=== PATIENT | male | born 1960 | race Caucasian/White ===

== ENCOUNTER 2018-05-07 07:08 | Emergency (ER) | payer MEDICAID ==
[2018-05-07 07:20] VITALS: BP 119/75
[2018-05-07] MEDS ORDERED: PROPARACAINE/FLUORESCEIN SOD 5 ML OPHT.BTL ONE (07:27)
[2018-05-07] MEDS ORDERED: PROPARACAINE 0.5% 15 ML OPHT DROP ONE (07:27)
--- NOTE | 2018-05-07 07:31 | EDPHY ---
H & P Time Seen by Provider: 05/07/18 07:13 HPI/ROS: CHIEF COMPLAINT: Left eye pain HISTORY OF PRESENT ILLNESS: Patient states he was working in the yard yesterday around 1 o'clock in the afternoon. He thinks he got a piece of sand or some other foreign body into the left eye. He denies any direct trauma. Tetanus vaccinations up-to-date. Does wear corrective lenses but denies significant visual changes. REVIEW OF SYSTEMS: Negative except per HPI. General Appearance: Alert, no distress. Eyes: Pupils are round and reactive to light bilaterally. Anasicora present. Small hordeolum noted in the left upper lid just right of center. No conjunctival injection. Slit-lamp exam with clear anterior chamber. No corneal ulcer or abrasion. Inversion of eyelid demonstrates no foreign body. Respiratory: No respiratory distress Neurological: Awake, alert, no focal deficits. Skin: Warm and dry, no rashes. Musculoskeletal: Neck is supple nontender. Extremities are symmetrical, full range of motion, no edema. Psychiatric: Patient is oriented X 3, there is no agitation. Medical/surgical history: Diabetes insulin-dependent, hypertension, high cholesterol, history of alcoholism. Social history: Heavy smoker. Smoking Status: Heavy smoker Constitutional: Initial Vital Signs Temperature (C) 36.6 C 05/07/18 07:16 Heart Rate 61 05/07/18 07:16 Respiratory Rate 16 05/07/18 07:16 Blood Pressure 119/75 05/07/18 07:16 O2 Sat (%) 96 05/07/18 07:16 O2 Delivery Mode Room Air Allergies/Adverse Reactions: No Known Allergies Allergy (Verified 12/21/15 11:16) Home Medications: Medication Instructions Recorded Atorvastatin Calcium 03/04/14 GLIPIZIDE 03/04/14 Bisoprolol Fumarate 11/07/14 Lantus Solostar 11/07/14 Spironolactone 11/07/14 Xarelto 05/07/18 Medical Decision Making Differential Diagnosis: Differential diagnosis includes but is not limited to foreign body, rust ring, corneal abrasion, corneal ulcer, conjunctivitis, iritis, corneal in. After evaluation no foreign body, corneal abrasion, corneal ulceration or eye inflammation noted. Small hordeolum/stye noted in the left upper lid. Will treat with topical antibiotics and warm soaks. Visual acuity appropriate. Discussed home care and return precautions. Stable for discharge. Departure - Departure Clinical Impression: Hordeolum Qualifiers: Hordeolum type: unspecified type Laterality: left Eyelid: upper Qualified Code( s): H00.014 - Hordeolum externum left upper eyelid Condition: Good Instructions: Meghan (ED) Additional Instructions: Do warm compresses several times a day for the next few days. Apply the antibiotic ointment to the affected eye 3 to 5 times a day. Use this for up to 7 days but if symptoms have not improved you should follow up with Ophthalmology or return to the emergency department. Referrals: NONE *PRIMARY CARE P,. [Primary Care Provider] - As per Instructions Jeet Marshall MD [Medical Doctor] - As per Instructions
[2018-05-07] MEDS ORDERED: ERYTHROMYCIN 0.5% 1 GM OPHT.OINT LEFTEYE ONE (07:47)
== END 2018-05-07 08:06 | disposition home or self-care (01) ==
LOC: CED 07:08
DX: H00.014 Hordeolum externum left upper eyelid (principal); F17.200 Nicotine dependence, unspecified, uncomplicated; I10 Essential (primary) hypertension; E11.9 Type 2 diabetes mellitus without complications